=== PATIENT | female | born 1985 | race Hispanic/Latino ===

== ENCOUNTER 2021-10-17 17:31 | Emergency (ER) | payer SELFPAY ==
--- OUTSIDE RECORDS SUMMARY | 2021-10-17 17:34 | XMS REPORT | Continuity of Care Document ---
:1985 Author Organization [facility] t Address [address] [place] [address] Care Team Providers Name Role Phone STEPHON FLYNN Primary Care Physician Unavailable STEPHON FLYNN Attending Clinician Unavailable Stephon Mao Attending Clinician Payers Payer Name Policy Type Policy Number Effective Date Expiration Date S ource Problems Condition Condition Condition Status Onset Resolution Last Treating Co mments Source Name Details Category Date Date Treatment Clinician Date Disease Active U nivers care and care and 4-26 [place] Medical immediatel immediatel Br anch y after y after delivery delivery BMI BMI Disease Active Univers 36.0-36.9, 36.0-36.9, 3-23 it y of adult adult 00:00: [place] [id number] Medical Branch Miscarriag Miscarriag Disease Active Overview : Univers e e 3-22 Formattin ity of 00:00: g of this [place] 00 note Medical might be Branch different from the original. Added automatic ally from request for surgery [id number] Threatened Threatened Disease Active U nivers 3-18 ity of 00:00: [place] 00 Medical Branch Supervisio Supervisio Disease Active U nivers n of high n of high 3-08 ity of risk risk 00:00: [place] , , 00 Me dical antepartum antepartum Br anch AMA AMA Disease Active Univers (advanced (advanced 3-08 ity of maternal maternal 00:00: [place] age) age) 00 Medical multigravi multigravi Br anch da 35+, da 35+, first first trimester trimester Class 2 Class 2 Disease Active Univers obesity obesity 3-08 ity of due to due to 00:00: [place] excess excess 00 Medical calories calories Branch with body with body mass index mass index (BMI) of (BMI) of 36.0 to 36.0 to 36.9 in 36.9 in adult, adult, unspecifie unspecifie d whether d whether serious serious comorbidit comorbidit y present y present Encounter Encounter Disease Active Uni vers for for 7-20 ity of Nexplanon Nexplanon [place] Nexplanon Nexplanon Disease Active Uni vers removal removal 7-14 ity of 00:00: [place] 00 Medical Branch Well woman Well woman Disease Active U nivers exam (no exam (no 7-15 ity of gynecologi gynecologi [place] ul[place] exam[place] ulises exam[place] 00 [facility] ulises Branch BMI BMI Disease Active Univers 37.0-37.9, 37.0-37.9, 7-15 it y of adult adult 00:00: [place] 00 Medical Branch Multiparit Multiparit Disease Active Overview : Univers y y 2-20 Formattin ity of 00:00: g of this [place] 00 note Medical might be Branch different from the original. Plans Implanon Maternal Maternal Disease Active Overview: Un mercedes varicella, varicella, 7-16 Formattin ity of non-immune non-immune 00:00: g of this [place] 00 note Medical might be Branch different from the original. Give pp Allergies, Adverse Reactions, Alerts Allergy Allergy Status Severity Reaction(s) Onset Inactive Treating Comm ents Source Name Type Date Date Clinician NO KNOWN Drug Active Univers ALLERGIE Class ity of S [facility] [place] Social History Social Habit Start Date Stop Date Quantity Comments Source History SDOH University o f Alcohol Frequency [place] M edical Branch History SDOH University o f Alcohol Std [place] Medical Drinks Branch History SDOH University o f Alcohol Binge [place] Medic al Branch Exposure to 2021-08-25 2021-09-04 Not sure [facility] SARS-CoV-2 00:00:00 10:05:00 [facility] (event) [place] Tobacco use and 2021-09-04 2021-09-04 Smokeless tobacco Un iversity of exposure 00:00:00 00:00:00 non-user [facility] [place] Alcohol intake 2021-09-04 2021-09-04 Ex-drinker [facility] 00:00:00 00:00:00 (finding) [facility] [place] Alcohol Comment 2018-09-01 2018-09-01 occasional Universit y of 00:00:00 00:00:00 [facility] [place] Sex Ass[birth year] At [birth year] Universit y of 00:00:00 00:00:00 [facility] [place] Smoking Status Start Date Stop Date Source Never smoked tobacco [facility] Medications Ordered Filled Start Stop Current Ordering Indication Dosage Frequency Signature Comments Components Source Medication Medication Date Date Medication? Clinician (SIG) Name Name Yes [id number] 1{packe Take 1 Univers vit 3-08 t} Packet by ity of 33-iron-fol 00:00: mouth [place] ic-dha 00 daily. Medical (SELECT-OB Branch + DHA) 29 mg iron-1 mg -250 mg combo pack Immunizations Ordered Filled Immunization Date Status Comments Sourc e Immunization Name Name Influenza Virus 2021-04-23 Completed Universit y of Vaccine Quad IM, 00:00:00 [facility] dical Preserv and ABX Branch Free 6 MO-64 YRS SARS-COV-2 COVID-19 2020-12-25 Completed Unive rsity of PFIZER VACCINE 00:00:00 [facility] SARS-COV-2 COVID-19 2020-09-27 Completed Unive rsity of PFIZER VACCINE 00:00:00 [facility] Varicella 2013-04-09 Completed [facility] (varivax)(chicken 00:00:00 [place] M edical pox) Branch TDAP 2013-03-10 Completed [facility] 00:00:00 [facility] [place] Influenza Virus 2012-10-26 Completed Universit y of Vaccine 00:00:00 [facility] [place] PPD (TB) 2012-08-27 Completed University 00:00:00 [facility] [place] Td 2012-05-17 Completed [facility] 00:00:00 [facility] [place] Procedures This patient has no known procedures. Encounters Start End Encounter Admission Attending Care Care Encounter Source Date/Time Date/Time Type Type Clinicians Facility Department ID 2022-09-04 2022-09-04 Outpatient [facility] [id number] Univers 08:30:00 08:30:00 [id number] ity [facility] 2021-10-23 2021-10-23 Outpatient R JIN [facility] [id number] Univers 09:15:00 09:15:00 STEPHON [id number] ity o f [facility] [place] 2021-10-23 2021-10-23 Outpatient R [facility] [id number] Univers 08:45:00 08:45:00 ity [facility] 2021-09-05 2021-09-05 [facility] [id number] Univers 00:00:00 00:00:00 Stephon Shaikh [id number] [place] as MATERNAL [phone] Med ical & CHILD [address] [place] [address] Results This patient has no known results.
[2021-10-17 17:59] LABS: Urine Blood 3+ (Negative); Urine Glucose Negative (Negative); Urine Protein 1+ (Negative); Urine Specific Gravity >=1.030 (1.005-1.030); Urine pH 5.5 (5.0-7.0)
[2021-10-17 19:01] LABS: Hematocrit 44.1 % (36.0-45.0); MCV 84.9 fL (80-100); MPV 8.3 fL (7.6-11.3); RBC Red Blood Cell Count 5.19 M/uL (3.86-4.86)
[2021-10-17 20:14] LABS: Potassium 3.7 mmol/L (3.5-5.1)
--- NOTE | 2021-10-17 21:21 | RAD REPORT ---
EXAM DESCRIPTION: US - Transvaginal Study Probe - 10/17/2021 9:14 pm CLINICAL HISTORY: VAGINAL BLEEDING Pelvic pain. COMPARISON: No comparisons FINDINGS: The uterus is normal in size, shape and echotexture. 6 mm fibroid noted anterior myometriu m. The uterus measures 8.9 x 4.8 x 4.4 cm. The endometrial stripe measures 4 mm, normal. The right ovary is normal in size, shape and echotexture. The right ovary measures 2.4 x 2.4 cm. Th e left ovary was obscured by bowel gas. Normal Doppler blood flow was demonstrated the right ovary. No significant pelvic ascites. IMPRESSION: Small anterior uterine fibroid. Left ovary was obscured by bowel gas.
--- NOTE | 2021-10-17 21:49 | ER ---
Nurse's Notes [facility] Name: Alicia Cobos Age: 36 yrs Sex: Female : 1985 Arrival Date: 10/17/2021 Time: 17:33 Bed 20 Private MD: Diagnosis: Abnormal uterine and vaginal bleeding, unspecified Presentation: 10/17 17:44 Chief complaint: Patient states: positive test, vaginal bleeding "a lot" , ph started this morning, no cramping, no pain. Coronavirus screen: Vaccine status: Patient reports receiving the 2nd dose of the covid vaccine. Client denies travel out of the [place] in the last 14 days. At this time, the client does not indicate any symptoms associated with coronavirus-19. Ebola Screen: No symptoms or risks identified at this time. Initial Sepsis Screen: Does the patient meet any 2 criteria? No. Patient's initial sepsis screen is negative. Does the patient have a suspected source of infection? No. Patient's initial sepsis screen is negative. Risk Assessment: Do you want to hurt yourself or someone else? Patient reports no desire to harm self or others. Onset of symptoms was October 17, 2021. 17:44 Method Of Arrival: Ambulatory ph 17:44 Acuity: CAMILA 4 ph Triage Assessment: 17:49 General: Appears in no apparent distress. Behavior is calm, cooperative, appropriate ph for age. Pain: Denies pain. : No deficits noted. Historical: - Allergies: 17:49 No Known Allergies; ph - PMHx: 17:49 Diabetes mellitus; ph - Immunization history:: Client reports receiving the 2nd dose of the Covid vaccine. - Social history:: Smoking status: Patient denies any tobacco usage or history of. Screenin:03 Abuse screen: Denies threats or abuse. Denies injuries from another. Nutritional jh6 screening: No deficits noted. Tuberculosis screening: No symptoms or risk factors identified. Fall Risk Assessment: 19:51 General: Appears in no apparent distress. comfortable, Behavior is calm, cooperative. lg3 Pain: Denies pain. Neuro: No deficits noted. Level of Consciousness is awake, alert, obeys commands, Oriented to person, place, time, situation. Cardiovascular: No deficits noted. Denies chest pain, shortness of breath, Capillary refill < 3 seconds Clubbing of nail beds is absent JVD is absent Patient's skin is warm and dry. Respiratory: No deficits noted. Airway is patent Respiratory effort is even, unlabored, Respiratory pattern is regular, symmetrical, Breath sounds are clear bilaterally. GI: No deficits noted. Abdomen is round non-distended, obese, Bowel sounds present X 4 quads. Abd is soft and non tender X 4 quads. : No deficits noted. Reports vaginal bleeding that is. EENT: No deficits noted. No signs and/or symptoms were reported regarding the EENT system. Derm: No deficits noted. No signs and/or symptoms reported regarding the dermatologic system. Skin is intact, is healthy with good turgor, Skin is dry, Skin temperature is warm. Musculoskeletal: No deficits noted. No signs and/or symptoms reported regarding the musculoskeletal system. Circulation, motion, and sensation intact. Range of motion: intact in all extremities. 21:25 Reassessment: Patient appears in no apparent distress at this time. No changes from lg3 previously documented assessment. Patient and/or family updated on plan of care and expected duration. Pain level reassessed. Patient is alert, oriented x 3, equal unlabored respirations, skin warm/dry/pink. Patient denies pain at this time. Vital Signs: 17:44 BP 116 / 76; Pulse 86; Temp 98.3; Pulse Ox 97% ; Weight 99.79 kg; ph 19:51 BP 116 / 86; Pulse 78; Resp 17 S; Pulse Ox 99% on R/A; Pain 0/10; lg3 21:59 BP 117 / 78; Pulse 74; Resp 17 S; Pulse Ox 100% on R/A; Pain 0/10; lg3 ED Course: 17:33 Patient arrived in ED. rg4 17:34 Santos Tejeda PA is PHCP. [facility] 17:34 Rock Lombardo DO is Attending Physician. jmm 17:49 Triage completed. ph 17:49 Arm band placed on right wrist. Patient placed in waiting room, Patient notified of ph wait time. 18:23 Karlie Cesar, [place]AL[place] is Primary Nurse. [facility] 18:40 Bed in low position. Call light in reach. Side rails up X 1. [facility] 18:40 Inserted saline lock: 20 gauge in right antecubital area, using aseptic technique. jh6 Blood collected. 21:16 Transvaginal Study Probe In Process Unspecified. EDMS 21:49 Shun De La Paz MD is Referral Physician. [facility] 22:00 No provider procedures requiring assistance completed. IV discontinued, intact, lg3 bleeding controlled, No redness/swelling at site. Pressure dressing applied. Administered Medications: No medications were administered Medication: 22:00 VIS not applicable for this client. lg3 Outcome: 21:49 Discharge ordered by . [facility] 22:00 Discharged to home ambulatory, with family. lg3 22:00 Condition: stable 22:00 Discharge instructions given to patient, family, Instructed on discharge instructions, follow up and referral plans. Demonstrated understanding of instructions, follow-up care. 22:14 Patient left the ED. hb Signatures: Dispatcher [employer] EDMS Santos Tejeda PA PA jmm Hall, Patricia, RN RN Gill Jasmine, RN RN Manda Figueroa 4 Marta Rodriguez RN RN 3 Karlie Cesar RN RN jh6
--- NOTE | 2021-10-17 21:49 | EDPHYS ---
Physician Documentation [facility] Name: Alicia Cobos Age: 36 yrs Sex: Female : 1985 Arrival Date: 10/17/2021 Time: 17:33 Bed 20 Private MD: ED Physician Rock Lombardo HPI: 10/17 21:47 This 36 yrs old Female presents to ER via Ambulatory with complaints of [facility] Vaginal Bleeding, + Preg <12wks. 21:47 This is a 36-year-old female with history of diabetes mellitus that presents emerged [facility] part with complaints of abnormal vaginal bleeding. Patient states her last cycle was in August. Patient states she had a home test which was positive. Denies pelvic pain, denies abdominal pain, denies fever.. Historical: - Allergies: 17:49 No Known Allergies; ph - PMHx: 17:49 Diabetes mellitus; ph - Immunization history:: Client reports receiving the 2nd dose of the Covid vaccine. - Social history:: Smoking status: Patient denies any tobacco usage or history of. ROS: 21:47 Constitutional: Negative for fever, chills, and weight loss, Cardiovascular: Negative jmm for chest pain, palpitations, and edema, Respiratory: Negative for shortness of breath, cough, wheezing, and pleuritic chest pain. 21:47 : Positive for vaginal bleeding. 21:47 All other systems are negative. Exam: 21:47 Constitutional: This is a well developed, well nourished patient who is awake, alert, jmm and in no acute distress. Head/Face: atraumatic. Eyes: EOMI, no conjunctival erythema appreciated ENT: Moist Mucus Membranes Neck: Trachea midline, Supple Chest/axilla: Normal chest wall appearance and motion. Cardiovascular: Regular rate and rhythm. No edema appreciated Respiratory: Normal respirations, no respiratory distress appreciated Abdomen/GI: Non distended Back: Normal ROM Skin: General appearance color normal MS/ Extremity: Moves all extremities, no obvious deformities appreciated, no edema noted to the lower extremities Neuro: Awake and alert Psych: Behavior is normal, Mood is normal, Patient is cooperative and pleasant Vital Signs: 17:44 BP 116 / 76; Pulse 86; Temp 98.3; Pulse Ox 97% ; Weight 99.79 kg; ph 19:51 BP 116 / 86; Pulse 78; Resp 17 S; Pulse Ox 99% on R/A; Pain 0/10; lg3 21:59 BP 117 / 78; Pulse 74; Resp 17 S; Pulse Ox 100% on R/A; Pain 0/10; lg3 MDM: 17:48 Patient medically screened. [facility] 21:47 Data reviewed: vital signs, nurses notes. Counseling: I had a detailed discussion with [facility] the patient and/or guardian regarding: the historical points, exam findings, and any diagnostic results supporting the discharge/admit diagnosis, lab results, radiology results, the need for outpatient follow up, to return to the emergency department if symptoms worsen or persist or if there are any questions or concerns that arise at home. ED course: Quantitative hCG was not definitive. Ultrasound revealed a small intrauterine fibroid. This is most likely the cause of the abnormal bleeding. Patient advised to follow-up with [facility] in 2 to 3 days for reevaluation and repeat quantitative hCG. I discussed this with the family and the patient whom agreed with the plan of care.. 10/17 17:49 Order name: Abo/rh Typing; Complete Time: 20:48 [facility] 10/17 17:49 Order name: Basic Metabolic Panel; Complete Time: 20:16 [facility] 10/17 17:49 Order name: CBC with Diff; Complete Time: 19:02 [facility] 10/17 17:49 Order name: Quantitative Hcg; Complete Time: 20:16 [facility] 10/17 17:59 Order name: Urine Dipstick-Ancillary; Complete Time: 18:02 [facility] 10/17 17:49 Order name: IV Saline Lock; Complete Time: 19:02 [facility] 10/17 17:49 Order name: Labs collected and sent; Complete Time: 19:02 [facility] 10/17 17:49 Order name: NPO; Complete Time: 19:02 [facility] 10/17 17:49 Order name: Urine Dipstick-Ancillary (obtain specimen); Complete Time: 18:09 [facility] 10/17 17:49 Order name: Urine Test (obtain specimen); Complete Time: 18:09 [facility] 10/17 20:30 Order name: Transvaginal Study Probe; Complete Time: 21:24 EDAK Administered Medications: No medications were administered Disposition Summary: 10/17/21 21:49 Discharge Ordered Location: Home jmm Condition: Stable jmm Diagnosis - Abnormal uterine and vaginal bleeding, unspecified jmm Followup: [facility] - With: Shun De La Paz MD - When: 2 - 3 days - Reason: Recheck today's complaints, Continuance of care, Re-evaluation by your physician Discharge Instructions: - Discharge Summary Sheet jmm - Abnormal Uterine Bleeding jm Forms: - Medication Reconciliation Form [facility] - Thank You Letter jm - Antibiotic Education jm - Prescription Opioid Use [facility] Signatures: Dispatcher [employer] EDMS Santos Tejeda PA PA jmm Hall, Patricia, RN RN ph Corrections: (The following items were deleted from the chart) 20:30 20:17 Pelvis Complete+US.RAD.BRZ ordered. EDAK EDMS
[2021-10-18 00:39] VITALS: TEMP 98.3
[2021-10-18 00:49] VITALS: BP 117/78; O2SAT 100
== END 2021-10-17 22:14 | disposition home or self-care (01) ==
LOC: ER 17:31
DX: N93.9 Abnormal uterine and vaginal bleeding, unspecified (principal); E11.9 Type 2 diabetes mellitus without complications
CPT/HCPCS: 36415; 76830; 80048; 81003; 84702; 85025; 86870; 86880; 86900; 86901; 86905; 99283